=== PATIENT | female | born 1960 | race Caucasian/White ===

== ENCOUNTER 2017-10-02 12:32 | Emergency (ER) | payer MEDICARE, MEDICAID ==
[~2017-10-02] VITALS: Ht 157.5 cm; Wt 70.0 kg
[~2017-10-02 12:32] MED LIST: ASPI100P; CARI3CAP PO; DIVA-68 PO; DIVA125T3 PO; FAMO-79 PO; FLUO20CA8 PO; FLUO40CA2; FOLI0.4T2 PO; HYDR25TA11 PO; LORA-445 PO; LORA0.5T PO; LORA1TAB PO; OLAN20TA7 PO; PANT20TA3 PO; POTA500G12; QUET300T PO; QUET400T PO; RISP1TAB48 PO; SENN8.6T98 PO; TRAZ50TA18 PO; TRIH5TAB2 PO; [UNRECOGNIZED DRUG - CODE] PO
[2017-10-02 13:20] LABS: BASOPHILS # (AUTO) 0.02 x10^3/uL (0-0.1); BASOPHILS % (AUTO) 1 % (0-1); EOSINOPHILS # (AUTO) 0.15 x10^3/uL (0-0.4); EOSINOPHILS % (AUTO) 4 % (1-7); LYMPHOCYTES # (AUTO) 1.36 x10^3/uL (1-3.4); LYMPHOCYTES % (AUTO) 31 % (22-44); MD NO; MEAN CORPUSCULAR HEMOGLOBIN 31.9 pg (27.0-34.8); MEAN CORPUSCULAR HGB CONC 34.4 g/dL (32.4-35.8); MEAN CORPUSCULAR VOLUME 92.6 fL (80-100); MEAN PLATELET VOLUME 9.2 fL (7.4-10.4); MONOCYTES % (AUTO) 11 % (2-9); NEUTROPHILS # (AUTO) 2.38 x10^3/uL (1.8-6.8); NEUTROPHILS % (AUTO) 54 % (42-75); PLATELET COUNT 161 x10^3/uL (130-400); RED CELL DISTRIBUTION WIDTH 14.5 % (9.6-15.2)
[2017-10-02 13:23] LABS: ANION GAP 8 mmol/L (5-15); CALCIUM 8.4 mg/dL (8.5-10.1); CHLORIDE 111 mmol/L (98-107); CREATININE 1.14 mg/dL (0.55-1.02)
[2017-10-02 13:26] LABS: TROPONIN I < 0.015 ng/mL (0.000-0.045)
[2017-10-02 13:46] LABS: INTERNATIONAL NORMALIZED RATIO 0.99 (0.93-1.1); PARTIAL THROMBOPLASTIN TIME 29 Seconds (25-31); PROTHROMBIN TIME 10.3 Seconds (9.6-11.5)
[2017-10-02 13:47] LABS: D-DIMER < 0.19 ug/mlFEU (0.00-0.52)
[2017-10-02 14:42] VITALS: BP 110/66
[2017-10-02] MEDS ORDERED: KETOROLAC 30 MG/1 ML ONE (14:59)
[2017-10-02] MEDS ORDERED: KETOROLAC 30 MG/1 ML IVPush ONE (15:00)
== END 2017-10-02 15:18 | disposition home or self-care (01) ==
LOC: ED 14:21
DX: R07.89 Other chest pain (principal); F41.1 Generalized anxiety disorder; F32.9 Major depressive disorder, single episode, unspecified
CPT/HCPCS: 36415; 71046; 80048; 82040; 84484; 85025; 85379; 85610; 85730; 93005; 96374; 99285; J1885

== ENCOUNTER 2020-01-31 13:02 | Emergency (ER) | payer MEDICARE, MEDICAID ==
[~2020-01-31] VITALS: Ht 157.5 cm; Wt 59.0 kg
[~2020-01-31 13:02] MED LIST changes: +DIVA-61 PO; -DIVA-68 PO; -DIVA125T3 PO; +DIVA125T31 PO; +FLUO20CA23 PO; -FLUO20CA8 PO; +HYDR-826 PO; -HYDR25TA11 PO; +LORA10TA61 PO; +OLAN20TA14 PO; -OLAN20TA7 PO; -PANT20TA3 PO; +PANT20TA4 PO; -TRAZ50TA18 PO; +TRAZ50TA66 PO; -[UNRECOGNIZED DRUG - CODE] PO
[2020-01-31 13:20] VITALS: BP 128/53
--- NOTE | 2020-01-31 13:29 | NUR ---
THIS IS A 59 YEAR OLD FEMALE WITH DEVELOPMENTAL DELAYS WHO WAS BIB BY AMBULANCE DUE TO SI. PT STATES SHE HAS NOT BEEN TAKING HER MEDICAITON X 1 DAY, PT DOES NOT HAVE A PLAN. A&OX4, DENIES ANY ETOH OR DRUG USE. BELONGINGS IN A BAG IN SAFEKEEPING. URINE OBTAINED. EXPLAINED PLAN OF CARE. PT VERBALIZED UNDERSTANDING. ROOM SECURED. MEAL REQUESTED.
[2020-01-31] MEDS ORDERED: HALO5TAB5 PO (14:00)
[2020-01-31] MEDS ORDERED: BUPR100T11 PO (14:01)
--- NOTE | 2020-01-31 14:26 | NUR ---
PT EATING LUNCH, VERBALZIED NO OTHER NEEDS AT THIS TIME
[2020-01-31 14:29] LABS: BASOPHILS % (AUTO) 1 % (0-1); EOSINOPHILS % (AUTO) 2 % (1-7); LYMPHOCYTES % (AUTO) 18 % (22-44); MEAN CORPUSCULAR HGB CONC 34.1 g/dL (32.4-35.8); MEAN PLATELET VOLUME 8.2 fL (7.4-10.4); MONOCYTES % (AUTO) 9 % (2-9); NEUTROPHILS % (AUTO) 70 % (42-75); PLATELET COUNT 215 x10^3/uL (130-400); RED BLOOD COUNT 3.98 x10^6/uL (3.82-5.3)
[2020-01-31 14:34] LABS: MD NO
[2020-01-31 14:37] LABS: AMPHETAMINE SCREEN, URINE Negative (Negative); BARBITURATE SCREEN, URINE Negative (Negative); BENZODIAZEPINE SCREEN, URINE Negative (Negative); CANNABINOID SCREEN, URINE Negative (Negative); METHADONE SCREEN, URINE Negative (Negative); OPIATE SCREEN, URINE Negative (Negative)
[2020-01-31 14:42] LABS: ALBUMIN 3.2 g/dL (3.4-5.0); ANION GAP 5 mmol/L (5-15); CHLORIDE 113 mmol/L (98-107); CREATININE 1.07 mg/dL (0.55-1.02)
[2020-01-31 14:49] LABS: COCAINE SCREEN, URINE Negative (Negative)
[2020-01-31 14:58] LABS: SALICYLATE LEVEL < 1.7 mg/dL (2.8-20.0)
--- NOTE | 2020-01-31 18:14 | NUR ---
LATE ENTRY: CALLED [facility] X 2 RENTAL COORDINATOR, NO ANSWER. PT WAS DISCHARGE WITH BUS TICKET, PT STATES "I KNOW WHERE I LIVE" RECEIVED A CALL FROM ANA FROM [facility], STATES PATIENT DID NOT GET HOME. EXPLAINED THAT PT WAS MEDICALLY CLEARED AND VERBALZIED SAFE DISCHARGE PLAN. RECEIVED A CALL FROM [facility] [employer] [facility] [employer]. EXPLAINED ABOVE.
--- NOTE | 2020-01-31 18:24 | NUR ---
LATE ENTRY- BREAK RN, REVIEWING DC INSTRUCTIONS, PT REQUESTED BUS PASS, RN VERIFIED PT HAD USED BUS BEFORE AND WAS ABLE TO TAKE BUS HOME. BUS PASS PROVIDED WITH DISCHARGE INSTRUCTIONS.
--- NOTE | 2020-01-31 18:31 | NUR ---
LATE ENTRY BREAK RN- ATTEMPTED TO CALL [facility] FROM [facility] FOR [facility], NO ANSWER FROM NUMBER PROVIDED.
--- NOTE | 2020-01-31 18:33 | NUR ---
CALLED MAM[facility] AT [facility], NO ANSWER. CALLED MAIN NUMBER FOR [facility], CLOSED AT 1700
== END 2020-01-31 15:08 | disposition home or self-care (01) ==
LOC: ED 15:00
DX: R45.851 Suicidal ideations (principal); Z91.14 Patient's other noncompliance with medication regimen
CPT/HCPCS: 36415; 80048; 80307; 82040; 85025; 99283